=== PATIENT | male | born 1955 | race Caucasian/White ===

== ENCOUNTER 2019-03-27 11:30 | Inpatient (IN) | payer MEDICARE, MEDICAID ==
[~2019-03-27] VITALS: Ht 165.1 cm; Wt 76.7 kg
--- NOTE | ~2019-03-27 | PROC ---
[facility] [address] [place] [address] PROCEDURE REPORT Name: LETITIA STOKES Room: [address] ADM IN M.R.#: [id number] Admission: 03/27/19 Attend Phys: Zeke David, Discharge: Date of : 59 Report #: [id number] THIS REPORT FOR: //name// cc: Millicent Cruz Ann FNPC ~ THIS REPORT FOR: //name// For GI report, please see the Prov[facility] report in [facility] [employer] content. By: [id number] Records Staff AYLA /RICCO
[2019-03-27 11:33] VITALS: BP 100/61
[2019-03-27] MEDS ORDERED: ASA81BEC PO (11:41)
[2019-03-27] MEDS ORDERED: COUMADIN 3 MG TA3 MG PO (11:41)
[2019-03-27] MEDS ORDERED: VOLTAREN GEL 1100 G1 TOP (11:41)
[2019-03-27] MEDS ORDERED: ZESTRIL20 MG PO (11:41)
[2019-03-27 12:06] LABS: HEMATOCRIT 33.7 % (42.0-52.0); HEMOGLOBIN 11.5 gm/dL (14.0-18.0); MCH 28.9 pg (26.0-34.0); MCHC 34.1 g/dL (28.0-37.0); MCV 84.7 fL (80.0-100.0); MPV 7.8 fl. (7.2-11.1); NUCLEATED RBCS 0 /100WBC; PLATELET COUNT* 90 thou/uL (150-400); RBC 3.98 mil/uL (4.50-6.00); RDW-CV 13.8 % (10.5-14.5); WBC 15.6 thou/uL (4.0-11.0)
[2019-03-27 12:10] LABS: INFLUENZA A ANTIGEN Negative (Negative); INFLUENZA B ANTIGEN Negative (Negative)
[2019-03-27 12:15] LABS: APTT 46.8 Seconds (25.0-31.3); INR 1.5; PROTIME 14.7 Seconds (9.20-11.50)
[2019-03-27 12:18] LABS: CALCIUM 8.4 mg/dL (8.5-10.1); CREATININE 2.9 mg/dL (0.6-1.3); POTASSIUM 3.3 mmol/L (3.5-5.1)
[2019-03-27 12:37] LABS: ALBUMIN 2.8 g/dL (3.4-5.0); TOTAL BILIRUBIN 0.8 mg/dL (<0.1-1.0); TOTAL PROTEIN 6.2 g/dL (6.4-8.2)
[2019-03-27 12:51] LABS: ABSOLUTE LYMPHOCYTES 0.5 thou/uL (0.8-5.3); ABSOLUTE MONOCYTES 0.3 thou/uL (0.0-1.2); ABSOLUTE NEUTROPHILS 14.8 thou/uL (1.6-8.1); PLATELET ESTIMATE ADEQUATE
--- NOTE | 2019-03-27 16:55 | 2DMMODE ---
[place] [address] 2 D/M-MODE ECHOCARDIOGRAM Name: LETITIA STOKES Room: [address] IN .[place].#: [id number] Admission: 03/27/19 Attend Phys: Zeke Rahman Discharge: Date of : 59 Date of Service: 03/27/19 1654 Report #: [id number] THIS REPORT FOR: cc: Millicent Cruz Ann FNPC Blick, David R. MD [facility] ~ APPROVED REPORT Study performed: 03/27/2019 16:09:43 EXAM: Comprehensive 2D, Doppler, and color-flow Echocardiogram Patient Location: In-Patient Room #: er Status: routine BSA: 1.77 HR: 77 bpm BP: 100/61 mmHg Rhythm: NSR Other Information Study Quality: Good Indications Chest Pain 2D Dimensions IVSd: 12.15 (7-11mm) LVOT Diam: 21.74 (18-24mm) LVDd: 45.85 mm PWd: 10.09 (7-11mm) Ascending Ao: 37.87 (22-36mm) LVDs: 33.90 (25-40mm) Aortic Root: 29.09 mm Volumes Left Atrial Volume (Systole) LA ESV Index: 32.00 mL/m2 Aortic Valve AoV Peak Gregorio.: 2.59 m/s AO Peak Gr.: 26.73 mmHg LVOT Max P.11 mmHg AO Mean Gr.: 15.64 mmHg LVOT Mean P.12 mmHg LVOT Max V: 0.73 m/s AO V2 VTI: 49.90 cm LVOT Mean V: 0.50 m/s DELROY (VTI): 1.22 cm2 LVOT V1 VTI: 16.42 [place] [address] 2 D/M-MODE ECHOCARDIOGRAM Name: LETITIA STOKES Room: [address] IN M.R.#: [id number] Admission: 03/27/19 Attend Phys: Zeke Rahman Discharge: Date of : 59 Date of Service: 03/27/19 1654 Report #: [id number] Mitral Valve E/A Ratio: 0.88 MV Decel. Time: 198.00 ms MV E Max Gregorio.: 1.20 m/s MV PHT: 57.42 ms MVA (PHT): 3.83 cm2 TDI E/Lateral E': 17.14 E/Medial E': 24.00 Medial E' Gregorio.: 0.05 m/s Lateral E' Gregorio.: 0.07 m/s Pulmonary Valve PV Peak Gregorio.: 0.63 m/s PV Peak Gr.: 1.57 mmHg Tricuspid Valve RAP Estimate: 5.00 mmHg TR Peak Gr.: 29.45 mmHg RVSP: 34.00 mmHg PA Pressure: 34.00 mmHg Left Ventricle The left ventricle is normal size. hypokinesis noted of the inferior wall Mild concentric left ventricular hypertrophy. Left ventricular systolic function is normal. The left ventricular ejection fraction is within the normal range. LVEF is 40-45%. Grade I - abnormal relaxation pattern. Right Ventricle The right ventricle is normal size. The right ventricular systolic function is normal. Atria Left atrium is mildly dilated. The right atrium size is normal. Aortic Valve Moderate aortic valve sclerosis. No aortic regurgitation is present. Mild aortic stenosis. Mitral Valve There is mitral annular calcification. Mild mitral regurgitation. Mild mitral stenosis. Tricuspid Valve The tricuspid valve is normal in structure. Mild tricuspid regurgitation. estimated pa pressure 40 [place] [address] 2 D/M-MODE ECHOCARDIOGRAM Name: LETITIA STOKES Room: [address] IN [facility]#: [id number] Admission: 03/27/19 Attend Phys: Zeke Rahman Discharge: Date of : 59 Date of Service: 03/27/19 1654 Report #: [id number] Pulmonic Valve The pulmonary valve is normal in structure. There is no pulmonic valvular regurgitation. Great Vessels The aortic root is normal in size. IVC is normal in size and collapses >50% with inspiration. Pericardium There is no pericardial effusion. <Conclusion> hypokinesis noted of the inferior wall Mild concentric left ventricular hypertrophy. LVEF is 40-45%. Left atrium is mildly dilated. Mild aortic stenosis. Mild mitral regurgitation. Mild tricuspid regurgitation. estimated pa pressure 40 mm Hg <ELECTRONICALLY SIGNED> By: Brian Burns MD, [facility] 03/27/19 1654 1654 1654 Brian Burns MD, FACC /INF
[2019-03-27 17:12] VITALS: BP 89/57
[2019-03-27 17:45] LABS: URINE BLOOD 3+ (Negative); URINE CLARITY CLOUDY; URINE GLUCOSE-RANDOM TRACE (Negative); URINE KETONES NEGATIVE (Negative); URINE LEUKOCYTES-REFLEX TRACE (Negative); URINE PROTEIN 3+ (Negative); URINE SPECIFIC GRAVITY 1.025 (1.005-1.030)
[2019-03-27 17:52] LABS: ICTOTEST (BILI CONFIRMATORY) Negative (Negative); URINE BILIRUBIN 1+ (Negative); URINE COLOR BROWN; URINE NITRITE-REFLEX POSITIVE (Negative)
[2019-03-27 17:55] LABS: SQUAMOUS 4-10 Moderate /LPF (0-3); URINE RBC >20 Many /HPF (0-2); URINE WBC-REFLEX 0-5 Rare /HPF (0-5)
[2019-03-27 17:56] LABS: CASTS None Seen /LPF (None Seen); CRYSTALS None Seen /LPF (None Seen); MUCUS 0-3 Light strn/LPF (None Seen)
[2019-03-27 18:33] VITALS: BP 89/57
--- NOTE | 2019-03-27 19:52 | NUR ---
RECEIVED PT FROM ER AT 1830. GET SITUATED TO ROOM. TELE IN PLACED ORDER. VSS. AOX TO SELF, BEDREST O2 SAT 90'S RA. PT HAS GI. NEPHROLOGY CONSULT. PT FOR CTA CHEST, CT ABDOMEN. TO COLLECT U/A, STOOL. GIVE REPORT TO NIGHT NURSE. HOURLY ROUNDING, BED ALARM, CALL LIGHT WITHIN REACH,
[2019-03-28 01:03] VITALS: BP 98/62
[2019-03-28 03:55] VITALS: BP 98/57
[2019-03-28 05:16] LABS: HEMATOCRIT 30.4 % (42.0-52.0); HEMOGLOBIN 10.5 gm/dL (14.0-18.0); MCH 29.5 pg (26.0-34.0); MCHC 34.4 g/dL (28.0-37.0); MCV 85.8 fL (80.0-100.0); MPV 8.6 fl. (7.2-11.1); RBC 3.55 mil/uL (4.50-6.00); RDW-CV 14.3 % (10.5-14.5); WBC 10.1 thou/uL (4.0-11.0)
[2019-03-28 05:35] LABS: ALBUMIN 2.5 g/dL (3.4-5.0); CALCIUM 7.8 mg/dL (8.5-10.1); CREATININE 2.2 mg/dL (0.6-1.3); MAGNESIUM 1.2 mg/dL (1.8-2.4); POTASSIUM 4.2 mmol/L (3.5-5.1); TOTAL BILIRUBIN 0.5 mg/dL (<0.1-1.0); TOTAL PROTEIN 5.8 g/dL (6.4-8.2); TROPONIN-I LEVEL 0.08 ng/mL (<0.06)
--- NOTE | 2019-03-28 06:28 | NUR ---
PT IS CONFUSED AND IMPULSIVE AT TIMES. PT STATES THAT HE IS TIRED OF BEING SICK AND BECOMES EASILY FRUSTERATED. DID BECOME TEARFUL STATING THAT HIS DOG A WEEK AGO AND IT HAS BEEN VERY HARD ON HIM. NOTED FLIGHT OF THOUGHTS DURING CONVERSATION. PT IS CURRENTLY AWAKE IN BED WITH BED ALARM ON AND CALL LIGHT WITHIN REACH.
[2019-03-28 11:00] VITALS: BP 106/60
--- NOTE | 2019-03-28 13:19 | CON ---
[address] [address] CONSULTATION Name: LETITIA STOKES Room: [address] IN M.R.#: [id number] Admission: 03/27/19 Attend Phys: Zeke David, Discharge: Date of : 59 Report #: [id number] THIS REPORT FOR: //name// cc: Millicent Cruz Ann FNPC ~ THIS REPORT FOR: //name// CC: Millicent David DATE OF SERVICE: 03/27/2019 CARDIOLOGY CONSULTATION HISTORY OF PRESENT ILLNESS: The patient a 63-year-old single white male, who was brought to the Emergency Room today by ambulance after he complained of hurting all over. Unfortunately, there are no old records here at [facility]. He previously was cared for at [facility]. He has had bilateral lower extremity revascularization and stenting. He currently lives by himself here in [place]. He complained of fever, chills and weakness. He does note some episodes of chest pain. He does note some shortness of breath. MEDICATIONS: His only medication includes aspirin. Apparently, he had been on lisinopril and warfarin in the past. ALLERGIES: He has no known drug allergies. FAMILY HISTORY: Positive for heart disease. SOCIAL HISTORY: He is single. Smokes a pack of cigarettes a day. Uses alcohol occasionally. He is not working at this time. REVIEW OF SYSTEMS: He has had no history of stroke, asthma, liver disease, kidney disease or cancer. PHYSICAL EXAMINATION: GENERAL: Revealed an elderly, disheveled white male, smelling of urine. VITAL SIGNS: He had a blood pressure of 100/60, pulse is 80, temperature is 100. HEENT: He was anicteric. Conjunctivae are pink. Mucous membranes appear dry. NECK: Neck veins are nondistended. CHEST: Clear to auscultation. CARDIOVASCULAR: Regular rate and rhythm. ABDOMEN: Soft. EXTREMITIES: Had no edema. Dorsalis pedis pulse cannot be evaluated. SKIN: [place] [address] CONSULTATION Name: LETITIA STOKES Room: [address] IN [facility]#: [id number] Admission: 03/27/19 Attend Phys: Zeke David, Discharge: Date of : 59 Report #: [id number] NEUROLOGIC: Nonfocal. DIAGNOSTIC DATA: ECG shows a sinus rhythm, nonspecific ST-segment changes. His workup in the Emergency Room, he had a portable chest x-ray that showed atelectasis, otherwise unremarkable. LABORATORY WORK: Sodium 133, BUN 35, creatinine 2.9, glucose 135, albumin 2.8. Lactic acid 2.2. His troponin 0.15. BNP 6159. White blood cell count 15.6, hemoglobin 11.5. IMPRESSION AND RECOMMENDATIONS: 1. Possible sepsis. Lactic acidosis noted. The patient states he hurts all over. 2. Borderline troponin. Recommend no further cardiac evaluation at this time. 3. Peripheral arterial disease with previous stenting. 4. Hypertension. The patient is on RIOS inhibitor. 5. Use of warfarin in the past. Reason unclear. I would obtain records from [facility]. <ELECTRONICALLY SIGNED> By: Brian Burns MD, FACC 03/28/19 1319 1613 [id number] Burns MD, FACC /nt
[2019-03-28 13:56] LABS: URINE BILIRUBIN NEGATIVE (Negative); URINE BLOOD 2+ (Negative); URINE CLARITY CLEAR; URINE COLOR YELLOW; URINE GLUCOSE-RANDOM 1+ (Negative); URINE KETONES NEGATIVE (Negative); URINE LEUKOCYTES-REFLEX NEGATIVE (Negative); URINE NITRITE-REFLEX NEGATIVE (Negative); URINE PROTEIN 1+ (Negative); URINE UROBILINOGEN 0.2 E.U./dl (0.2-1.0)
[2019-03-28 14:07] LABS: SQUAMOUS 0-3 Few /LPF (0-3)
[2019-03-28 14:08] LABS: URINE RBC 3-10 Few /HPF (0-2); URINE WBC-REFLEX 0-5 Rare /HPF (0-5)
[2019-03-28 14:09] LABS: BACTERIA-REFLEX None Seen /HPF (None Seen); MUCUS None Seen strn/LPF (None Seen)
[2019-03-28 14:10] LABS: CRYSTALS None Seen /LPF (None Seen); FINE GRANULAR CASTS 0-3 Few /LPF (None Seen); HYALINE CASTS 4-10 Moderate /LPF (None Seen)
[2019-03-28 16:47] VITALS: BP 93/59
--- NOTE | 2019-03-28 18:42 | NUR ---
PT HAS C/O PAIN TO BACK AND ABD. PT GIVEN LIDOCAINE PATCH AND IV DILAUDID.ZOFRAN GIVEN FOR NAUSEA. PT TO BEGIN BOWEL PREP FOR COLONOSCOPY THIS EVENING. VSS ON RA. PT IS BEDREST. CALL LIGHT IN REACH.FALL PRCAUTIONS IN PLACE
[2019-03-28 20:00] VITALS: BP 113/63
[2019-03-28 20:02] LABS: CALCIUM 7.6 mg/dL (8.5-10.1); POTASSIUM 4.5 mmol/L (3.5-5.1)
[2019-03-29] VITALS: BP 118/68
[2019-03-29 03:59] VITALS: BP 106/69
--- NOTE | 2019-03-29 04:42 | NUR ---
ASSUMED CARE OF PT AFTER REPORT AT 1930. PT A&OX4. VSS. PHYSICAL ASSESSMENT COMPLETED AND CHARTED. PT ON RA. PT TRACING SR/ST ON TELE. PT COMPLAINED OF BACK & FEET PAIN-MEDS GIVEN PER MAR. STARTED BOWEL PREP-ENCOURAGED PT TO DRINK GOLYTELY BUT ONLY TOOK 1100 MLS. INSTRUCTED ON NPO POST MIDNIGHT FOR EGD & COLONOSCOPY TODAY. FALL PRECAUTIONS IN PLACE. CALL LIGHT WITHIN REACH.
[2019-03-29 04:46] LABS: HEMATOCRIT 27.9 % (42.0-52.0); HEMOGLOBIN 9.9 gm/dL (14.0-18.0); MCH 29.4 pg (26.0-34.0); MCHC 35.3 g/dL (28.0-37.0); MCV 83.4 fL (80.0-100.0); MPV 10.3 fl. (7.2-11.1); RBC 3.35 mil/uL (4.50-6.00); RDW-CV 13.9 % (10.5-14.5); WBC 8.5 thou/uL (4.0-11.0)
[2019-03-29 05:01] LABS: ALBUMIN 2.2 g/dL (3.4-5.0); CALCIUM 6.9 mg/dL (8.5-10.1); CREATININE 1.8 mg/dL (0.6-1.3); POTASSIUM 3.8 mmol/L (3.5-5.1); TOTAL BILIRUBIN 0.6 mg/dL (<0.1-1.0); TOTAL PROTEIN 5.7 g/dL (6.4-8.2)
[2019-03-29 07:30] VITALS: BP 120/73
--- NOTE | 2019-03-29 10:12 | CON ---
[address] [address] CONSULTATION Name: LETITIA STOKES Room: [address] IN M.R.#: [id number] Admission: 03/27/19 Attend Phys: Zeke David, Discharge: Date of : 59 Report #: [id number] THIS REPORT FOR: //name// cc: Millicent Cruz Ann FNPC ~ THIS REPORT FOR: //name// CC: Millicent David DATE OF SERVICE: 03/28/2019 REQUESTING PHYSICIAN: Zeke David MD REASON FOR CONSULTATION: Acute kidney injury. HISTORY OF PRESENT ILLNESS: The patient is a 63-year-old white male with medical history significant for hypertension, chronic pain syndrome, anemia, tobaccoism, coronary artery disease, peripheral artery disease, presents to the hospital on 03/27/2019 with complaints of nausea, diarrhea, abdominal discomfort, fever and chills. The patient had several episodes of bloody diarrhea. His creatinine on admission was 2.9, today it is 2.2. I do not have baseline of his creatinine. SOCIAL HISTORY: Positive for tobaccoism. FAMILY HISTORY: Negative for renal disease. REVIEW OF SYSTEMS: Positive for symptoms as I mentioned earlier, otherwise all systems reviewed and negative. PHYSICAL EXAMINATION: GENERAL: Awake, alert, oriented. VITAL SIGNS: Blood pressure 98/57, heart rate 81, afebrile. HEENT: Pupils are round. NECK: Supple. LUNGS: Decreased air movement. CARDIOVASCULAR: Regular rate. ABDOMEN: Soft. Mildly tender. LOWER EXTREMITIES: No edema. LABORATORY DATA: His serum sodium 136, potassium 4.2, chloride 103, carbon dioxide 21, BUN 41, creatinine 2.2. His renal ultrasound revealed normal renal cortical thickness, no evidence of obstructions, kidney sizes are normal. His abdominal ultrasound was unremarkable. He also had abdominal CT, which revealed severe pancolonic abnormal bowel wall thickening consistent with [place] [address] CONSULTATION Name: LETITIA STOKES Room: [address] IN [facility].#: [id number] Admission: 03/27/19 Attend Phys: Zeke David, Discharge: Date of : 59 Report #: [id number] ASSESSMENT: 1. Acute kidney injury due to septic process likely due to enterocolitis. 2. Enterocolitis. 3. Tobaccoism. 4. Coronary artery disease. PLAN: 1. Continue with IV fluids. 2. Continue with antibiotics. 3. His renal functions are improving. 4. We will check his postvoid residual and place Reddy if postvoid residual is high. Discussed the case with the patient's nurse. <ELECTRONICALLY SIGNED> By: George Hinkle MD 03/29/19 1012 1058 [id number] Hinkle MD /LORETO
[2019-03-29 11:15] VITALS: BP 109/64
[2019-03-29 15:02] LABS: % SATURATION 3 % (20-39); IRON 7 ug/dL (50-175)
[2019-03-29 16:02] VITALS: BP 137/71
[2019-03-29 20:00] VITALS: BP 108/69
[2019-03-30 00:55] VITALS: BP 130/56
[2019-03-30 04:18] VITALS: BP 105/56
--- NOTE | 2019-03-30 04:49 | NUR ---
ASSUMED CARE OF PT AFTER REPORT AT 1930. PT A&OX3-4. CONFUSED & FORGETFUL AT TIMES. VSS. PHYSICAL ASSESSMENT COMPLETED AND CHARTED. PT ON RA. PT TRACING SR ON TELE. PT UP WITH 1 ASSIST TO BSC. PT COMPLAINED OF BACK AND FEET PAIN-MEDS GIVEN PER APR. INSTRUCTED ON NPO POST MIDNIGHT FOR EGD & COLONOSCOPY TODAY. COMMUNICATES UNDERSTANDING BUT NEED REINFORCEMENT. PT ABLE TO SLEEP WELL ON BED. FALL PRECAUTIONS IN PLACE. CALL LIGHT WITHIN REACH.
[2019-03-30 06:12] LABS: ALBUMIN 2.5 g/dL (3.4-5.0); CALCIUM 7.4 mg/dL (8.5-10.1); CREATININE 1.6 mg/dL (0.6-1.3); POTASSIUM 3.7 mmol/L (3.5-5.1); TOTAL BILIRUBIN 0.5 mg/dL (<0.1-1.0); TOTAL PROTEIN 6.2 g/dL (6.4-8.2)
[2019-03-30 06:36] LABS: MAGNESIUM 2.3 mg/dL (1.8-2.4)
[2019-03-30 07:23] LABS: HEMATOCRIT 26.3 % (42.0-52.0); HEMOGLOBIN 9.1 gm/dL (14.0-18.0); MCHC 34.7 g/dL (28.0-37.0); MCV 83.6 fL (80.0-100.0); MPV 9.2 fl. (7.2-11.1); RBC 3.15 mil/uL (4.50-6.00); RDW-CV 14.6 % (10.5-14.5); WBC 8.8 thou/uL (4.0-11.0)
[2019-03-30 08:00] VITALS: BP 103/63
[2019-03-30 11:01] VITALS: BP 119/66
--- NOTE | 2019-03-30 12:37 | NUR ---
Pt out of room, CM to f/u later
[2019-03-30 15:00] VITALS: BP 127/73
--- NOTE | 2019-03-30 16:30 | CON ---
[address] [address] CONSULTATION Name: LETITIA STOKES Room: [address] IN M.R.#: [id number] Admission: 03/27/19 Attend Phys: Zeke David, Discharge: Date of : 59 Report #: [id number] THIS REPORT FOR: //name// cc: Millicent Cruz Ann FNPC ~ THIS REPORT FOR: //name// CC: Millicent David DATE OF SERVICE: 03/29/2019 INFECTIOUS DISEASE CONSULTATION REASON FOR CONSULTATION: Evaluate bacteremia. HISTORY OF PRESENT ILLNESS: A 63-year-old with underlying coronary artery disease, peripheral vascular disease, aortic stenosis, who has had fever, chills, bloody diarrhea. Onset of his illness was about a week before his admission. He has had low back pain. Mild abdominal pain. Denied any chest pain, cough, or sputum production. He has had no skin lesions. He has underlying history of peripheral vascular disease. He has had an aortic stent graft. He has had bilateral endarterectomies in the femoral regions. He has also had a carotid endarterectomy. He reports no specific travel. He lives alone. He has had no vomiting. Denies any previous history of enteritis. REVIEW OF SYSTEMS: A 10-point review of system was negative other than what has been described above. As far his back pain goes, it has been moderate in severity with no radicular features. PAST MEDICAL HISTORY: Hypertension, coronary artery disease, peripheral vascular disease, hyperlipidemia, hypothyroidism, peripheral stents, and aortic stenosis. FAMILY HISTORY: Noncontributory. SOCIAL HISTORY: Smoker of cigarettes. Previously heavy drinker. ALLERGIES: None known. MEDICATIONS: As noted on his MAR, now on Zosyn and metronidazole. PHYSICAL EXAMINATION: VITAL SIGNS: He was afebrile and hemodynamically stable. GENERAL: He was poorly kempt. SKIN: Without rash or decubitus. [place] [address] CONSULTATION Name: LETITIA STOKES Room: [address] IN [facility].#: [id number] Admission: 03/27/19 Attend Phys: Zeke David, Discharge: Date of : 59 Report #: [id number] HEENT: Eyes, without scleral icterus or conjunctivitis. No evidence of peripheral emboli. Mouth without mucositis. Dentition in very poor repair with multiple fractured teeth and dental caries. NECK: Supple. LUNGS: Clear. HEART: Regular without appreciable murmur. ABDOMEN: Soft and nontender. EXTREMITIES: Without clubbing, cyanosis, or edema. I did not appreciate abdominal bruit. Abdomen was without hepatosplenomegaly or mass. No CVA tenderness. No back percussion tenderness or CVA tenderness. NEUROLOGIC: Cranial nerves intact. Strength in the upper and lower extremities along with sensation to touch symmetric and within normal limits. Mood was normal. LABORATORY STUDIES: Reviewed. Microbiology reviewed. CT scan of the abdomen and pelvis, chest x-ray and ultrasound of the abdomen reviewed. 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 IMPRESSION: 1. Gram-positive cocci bacteremia, high grade, concerning for endovascular infection. Colitis with bloody stool, concerning for underlying ischemia. 2. Aortic stenosis with history of vascular disease, carotid, abdominal, and femoral disease. 3. Back pain, still indeterminate in etiology. 4. Anemia and thrombocytopenia. 5. Acute kidney injury. RECOMMENDATIONS: 1. We will add vancomycin to the program and change Zosyn to Unasyn. Repeat his blood cultures today. 2. We will await endoscopy and look for evidence of colitis or aortic fistula. With a stent graft, this would be unusual, much less common than typical surgical aortic aneurysm repair. 3. Obtain transesophageal echocardiogram. 4. Follow back pain. May need further imaging. <ELECTRONICALLY SIGNED> By: Chinedu Gonzalez MD 03/30/19 1630 1947 Dshine Gonzalez MD /nt
[2019-03-30 16:45] VITALS: BP 119/74
--- NOTE | 2019-03-30 16:54 | NUR ---
0850 SS enema given prior to colonscopy/EGD. Pt assisted to BSC and tolerated well. 1015 patient taken to GI lab. IV patent and site without redness or edema.
--- NOTE | 2019-03-30 16:56 | NUR ---
1500 patient returned to room in good condition, report rec'd from Jacquie. Pt had 6 polyps removed and sent for biopsy. Pt presents with confusion and demanding to go home. Speaking to his sister...Rachael on the phone and handed the phone to this nurse. Rachael states that she is currently in [place] having a dental procedure performed and is unable to be here for her brother although she is the [facility]. Patient became angry with her because she would not come and get him, trying other friends and family members who also, stated they would not come and take him home. This nurse spoke with patient at great length about how sick he is, he just had anesthesia and he should really stay the night and look at things again tomorrow. Pt agreed and a late lunch tray with extra soda was provided with pt expressing thanks.
--- NOTE | 2019-03-30 17:00 | NUR ---
1352 Silvia Butler from Lab called and informed Júnior Ordonez of 2nd blood culture being positive for gram + cocci. This nurse sent message to Dr. Aragon, and LM with Isamar at Dr. Bourne's office r/t results. Rec'd callback from Dr. Aragon to make sure Dr. Bourne is aware and informed him that his office has been notified. No return call from Dr. Bourne rec'd.
--- NOTE | 2019-03-30 19:49 | NUR ---
I AGREE WITH IRINA SHAW CHARTING/ASSESSMENT.
[2019-03-31 00:44] VITALS: BP 133/62
[2019-03-31 04:47] VITALS: BP 105/60
[2019-03-31 06:09] LABS: HEMATOCRIT 29.2 % (42.0-52.0); HEMOGLOBIN 10.1 gm/dL (14.0-18.0); MCH 29.3 pg (26.0-34.0); MCHC 34.5 g/dL (28.0-37.0); MPV 9.9 fl. (7.2-11.1); RBC 3.44 mil/uL (4.50-6.00); RDW-CV 14.7 % (10.5-14.5)
[2019-03-31 06:20] LABS: CALCIUM 7.6 mg/dL (8.5-10.1); CREATININE 1.4 mg/dL (0.6-1.3); POTASSIUM 3.4 mmol/L (3.5-5.1)
[2019-03-31 08:00] VITALS: BP 120/68
--- NOTE | 2019-03-31 11:03 | NUR ---
Pt is A&O. Resides at home alone. Independent. Pt has a walker, but states he wants a newer one. CM contacted Tamara at [facility], Pt qualifies for a new walker, order faxed, walker to be dispensed at dc. Order is on the front of the chart. No home o2. No hx of HH or SNF. Pt wants HH at dc, CM to fax intial HH referral to [facility], will fax orders at dc, anticipate dc in a few days. Following.
[2019-03-31 11:09] VITALS: BP 120/68
--- NOTE | 2019-03-31 12:24 | CON ---
[address] [address] CONSULTATION Name: KIKELETITIA Room: [address] IN M.R.#: [id number] Admission: 03/27/19 Attend Phys: Zeke David, Discharge: Date of : 59 Report #: [id number] THIS REPORT FOR: //name// cc: Millicent Cruz Ann FNPC ~ THIS REPORT FOR: //name// CC: Millicent David DATE OF SERVICE: 03/28/2019 HISTORY OF PRESENT ILLNESS: This is a pleasant 63-year-old gentleman with past medical history significant for coronary artery disease, peripheral vascular disease, hypertension, hyperlipidemia, osteoarthritis, who is presenting for evaluation of fever, chills, and diarrhea. The patient complained of generalized abdominal pain with nausea. He denies any vomiting. He initially reported to me that he had some diarrhea with hematochezia, but then he was not sure whether it was hematochezia or hematuria. The patient reports since his hospitalization, his abdominal pain has subsided and he is unable to give me any details about it. Does report associated fever and subjective sensation of chills. The patient denies similar episodes in the past. The patient has never had an EGD or colonoscopy in the past. PAST MEDICAL HISTORY: Hypertension, coronary artery disease, peripheral vascular disease, hyperlipidemia, hypothyroidism. PAST SURGICAL HISTORY: The patient had multiple stents placed in his lower extremities and he has a large midline scar in his abdomen, but he is unable to tell me what is the reason for that. SOCIAL HISTORY: The patient reports he quit drinking last year, but prior to that abused alcohol heavily. He reports that prior to last year, he was a 2-pack per day smoker, but now smokes about 6 cigarettes per day. Denies any recreational drug use. FAMILY HISTORY: No known history of colon cancer or Cunningham related neoplasia. REVIEW OF SYSTEMS: Negative except for what was mentioned in the HPI. PHYSICAL EXAMINATION: VITAL SIGNS: Temperature 36.8, pulse rate 84, blood pressure 93/59, pulse ox 95%. LABORATORY DATA: Hemoglobin 10.5, hematocrit 30.4, platelet count 53, WBC count 10.1. Sodium 136, potassium 4.2, chloride 103, bicarbonate 21, BUN 41, [place] [address] CONSULTATION Name: KIKELETITIA Room: [address] IN [facility].#: [id number] Admission: 03/27/19 Attend Phys: Zeke David, Discharge: Date of : 59 Report #: [id number] creatinine 2.2, total bilirubin 0.7, AST 77, ALT 35, alkaline phosphatase 51. INR 1.5. IMAGING: Abdomen CT, this demonstrates severe pancolonic thickening consistent with enterocolitis, nonspecific gallbladder wall thickening with pericholecystic fluid, edema. ASSESSMENT: Pleasant 63-year-old gentleman with history of alcohol abuse, lifetime history of smoking, peripheral vascular disease, coronary artery disease, presents for evaluation of abdominal pain and diarrhea. The patient has not had a bowel movement since his hospitalization; therefore, samples were unable to be sent for C. diff. He has imaging evidence of pancolitis. PLAN: I would recommend prepping him tomorrow for a colonoscopy. Thrombocytopenia, I suspect because of his heavy alcohol abuse, the patient may have a history of cirrhosis for which I would recommend getting an EGD at the same time. If the EGD has varices, this would probably be diagnostic of cirrhosis; however, if he does not have any varices, I would recommend getting a transjugular liver biopsy as he is on chronic anticoagulation. <ELECTRONICALLY SIGNED> By: Casey Zhao MD 03/31/19 1224 1721 [id number] Zhao MD /nt
[2019-03-31 13:06] VITALS: BP 140/81
[2019-03-31 17:30] VITALS: BP 187/96
--- NOTE | 2019-03-31 18:57 | NUR ---
ASSUMED PT CARE AT 0800, PT AOX2, UP WITH ASSIST O2 SAT 90'S RA. STATUS CHANGED TO MED SURG. PT COMPLAINS OF BACK AND ABDOMINAL PAIN. EDEMA ON BILATERAL LOWER EXT, ABDOMEN AND PENIS AREA NOTED. PT STATE HE IS NOT FEELING GOOD IN GENERAL. PT RECEIVED IRON SUCROSE. PT ON ANTIBIOTIC. MEDS GIVEN ORDERED. AROUND 1340 PT SAY HE HAVENT URINATE. BLADDER SCAN SHOWS 180. PT GETTING ANXIOUS AND WANTED HAVE CATHETER. DID ONE TIME STRAIGHT CATHETER AND REMOVED 200. PT CONTINUE TO COMPLAINS OF HAVING A LOT PAIN AND WANTED TO LEAVE. PAIN MEDS GIVEN WITHOUT RELIEF. PT TRIED TO LEAVE THE UNIT. WE CALLED THE SECURITY AND ABLE TO CONVINCED HIM TO GO BACK TO ROOM.THIS NURSE HAD A LENGHTY TALK WITH PT AND EXPLAINED WHY HE NEEDS TO STAY TO HOSPITAL. EVENTUALLY PT CALM DOWN AND AGREE. HOURLY ROUNDING, CALL LIGHT WITHIN REACH, WILL CONTINUE TO MONITOR.
--- NOTE | 2019-03-31 22:52 | NUR ---
2000 Pt refusing assessment and v/s at this time. 2029 Phlebotomy reporting that pt is refusing lab work. [address] PM medications. Dr Del Cid notified.
[2019-04-01] VITALS (9 sets, daily range): BP systolic 152–185; BP diastolic 71–99
[2019-04-01 10:21] LABS: HEMATOCRIT 28.5 % (42.0-52.0); HEMOGLOBIN 9.6 gm/dL (14.0-18.0); MCH 28.3 pg (26.0-34.0); MCHC 33.6 g/dL (28.0-37.0); MCV 84.2 fL (80.0-100.0); RBC 3.38 mil/uL (4.50-6.00); RDW-CV 14.6 % (10.5-14.5); WBC 12.3 thou/uL (4.0-11.0)
--- NOTE | 2019-04-01 10:34 | NUR ---
Patient came down from 2W for VASHTI procedure and vitals completed. Patient is febrile with temp measuring 101.6 degrees. Call placed to MD and update given. Relayed to Dr. Del Cid that patient's abdomen is tight with no bowel sounds on the right side and active bowel sounds on the left side. Patient is not comfortable and is nauseated. Attempted to do the VASHTI after 4mg Versed and 100mcg Fentanyl and patient could not tolerate the tube in his throat. Procedure aborted for today and will schedule with anesthesia tomorrow. Dr. Del Cid updated on patients status
[2019-04-01 10:37] LABS: CALCIUM 7.9 mg/dL (8.5-10.1); CREATININE 1.1 mg/dL (0.6-1.3); MAGNESIUM 1.8 mg/dL (1.8-2.4); POTASSIUM 3.6 mmol/L (3.5-5.1)
--- NOTE | 2019-04-01 13:44 | EKG ---
[place] [address] ELECTROCARDIOGRAM REPORT Name: KIKELETITIA Downs Room: [address] ADM IN M.R.#: [id number] Admission: 03/27/19 Attend Phys: Zeke Rahman Discharge: Date of : 59 Date of Service: 03/28/19 0053 Report #: [id number] THIS REPORT FOR: cc: Millicent Cruz Ann FNPC Holkins, John M. MD [facility] ~ THIS REPORT FOR: //name// [facility] Test Date: 2019-03-28 Test Time: 00:53:56 Pat Name: LETITIA STOKES Department: Room: [address] Gender: M Pastor: WILLIAM : 1955 Requested By: Zeke David Order Number: [id number] Reading MD: Moise Wing Measurements Intervals [place] Rate: 82 P: 50 OR: 143 QRS: 22 QRSD: 104 T: 98 QT: 398 QTc: 465 Interpretive Statements Sinus rhythm Borderline T abnormalities, lateral leads Baseline wander in lead(s) V1,V4 Compared to ECG 03/27/2019 12:09:25 T-wave abnormality now present ST (T wave) deviation no longer present Electronically Signed On 03-30-2019 15:56:45 [employer] by Moise Wing [email or web address] <ELECTRONICALLY SIGNED> By: Moise Wign MD, [facility] 03/30/19 1556 005 Moise Wing MD, [facility] /EPI
--- NOTE | 2019-04-01 13:55 | EKG ---
[place] [address] ELECTROCARDIOGRAM REPORT Name: LETITIA STOKES Room: [address] ADM IN M.R.#: [id number] Admission: 03/27/19 Attend Phys: Zeke Rahman Discharge: Date of : 59 Date of Service: 03/27/19 1209 Report #: [id number] THIS REPORT FOR: cc: Millicent Cruz Ann FNPC Blick,Brian Pruitt MD [facility] ~ THIS REPORT FOR: //name// [facility] ED Test Date: 2019-03-27 Test Time: 12:09:25 Pat Name: LETITIA STOKES Department: Room: [facility] Gender: M Teacher Selection Specialist: : [id number] Requested By: Ahsan Ulloa Order Number: [id number] MD: Brian Burns Measurements Intervals [place] Rate: 98 P: 32 [place]: 142 QRS: 4 QRSD: 103 T: 41 QT: 362 QTc: 463 Interpretive Statements Sinus rhythm Probable left atrial enlargement RSR' in V1 or V2, probably normal variant Minimal ST depression, lateral leads Baseline wander in lead(s) V4,V5 No previous ECG available for comparison Electronically Signed On 03-27-2019 15:18:05 CHILD PROTECTIVE INVESTIGATOR by Brian Burns [email or web address] <ELECTRONICALLY SIGNED> By: Brian Burns MD, [facility] 03/27/19 1518 1209 1209 Brian Burns MD, [facility] /EPI
--- NOTE | 2019-04-01 16:08 | NUR ---
CALLED IN [employer] SCRIPT TO CHECK COST AND SEE IF NEEDED PRIOR AUTH, HAD TO LEAVE ON VMAIL AT [facility]
[2019-04-02] VITALS: BP 128/83
--- NOTE | 2019-04-02 04:36 | NUR ---
PT. HAS REMAINED IMPULSIVE, ATTEMPTS TO CLIMB OUT OF BED FREQUENTLY THROUGHOUT SHIFT. BED ALARM HAS REMAINED ARMED, SAFETY MAINTAINED. PT. VERY FRUSTRATED THAT HE CANNOT DRINK ANYTHING THIS A.M. DUE TO VASHTI. CURSING, EXPRESSING FRUSTRATION. THIS NURSE SAT IN ROOM DUE TO IMPULSIVENESS/MAINTAIN SAFETY. NEW IV STARTED IN RIGHT WRIST. ROOM CLOSE TO NURSING STATION, BED ALARM ARMED. WILL CONTINUE TO MONITOR.
[2019-04-02 08:20] LABS: HEMATOCRIT 29.3 % (42.0-52.0); HEMOGLOBIN 9.9 gm/dL (14.0-18.0); MCH 28.5 pg (26.0-34.0); MCHC 33.7 g/dL (28.0-37.0); MCV 84.5 fL (80.0-100.0); MPV 8.2 fl. (7.2-11.1); RBC 3.47 mil/uL (4.50-6.00); RDW-CV 14.2 % (10.5-14.5); WBC 14.8 thou/uL (4.0-11.0)
[2019-04-02 08:25] LABS: CALCIUM 7.6 mg/dL (8.5-10.1); CREATININE 1.2 mg/dL (0.6-1.3); MAGNESIUM 1.6 mg/dL (1.8-2.4); POTASSIUM 3.2 mmol/L (3.5-5.1)
[2019-04-02 16:16] VITALS: BP 137/77
[2019-04-02 20:30] VITALS: BP 167/88
[2019-04-03 00:11] VITALS: BP 167/68
[2019-04-03 04:20] VITALS: BP 153/75
[2019-04-03 05:33] LABS: CALCIUM 7.9 mg/dL (8.5-10.1); CREATININE 1.2 mg/dL (0.6-1.3); MAGNESIUM 1.7 mg/dL (1.8-2.4); POTASSIUM 3.5 mmol/L (3.5-5.1)
--- NOTE | 2019-04-03 06:00 | NUR ---
PT SLEPT ON AND OFF THIS SHIFT. ASSESSMENT DOCUMENTED. MEDS GIVEN PER E-MAR. IV PATENT, ABX GIVEN. PAIN MEDS GIVEN PER E-MAR PER PT REQUEST. PT REFUSING GOWN THIS SHIFT, REFUSING TO ANSWER QUESTIONS. PT YELLING OUT AT TIMES. PT IV SITE INFILTRATED THIS MORNING. UNABLE TO GET NEW SITE AT THIS TIME, NURSING ORAL SURGERY PHYSICIAN NOTIFIED. WILL CONTINUE WITH PLAN OF CARE.
[2019-04-03 08:25] LABS: HEMATOCRIT 33.3 % (42.0-52.0); HEMOGLOBIN 11.1 gm/dL (14.0-18.0); MCHC 33.2 g/dL (28.0-37.0); MCV 84.4 fL (80.0-100.0); MPV 7.6 fl. (7.2-11.1); RBC 3.95 mil/uL (4.50-6.00); RDW-CV 14.7 % (10.5-14.5); WBC 25.3 thou/uL (4.0-11.0)
[2019-04-03 10:07] LABS: APTT 26.7 Seconds (25.0-31.3); INR 1.1; PROTIME 11.4 Seconds (9.20-11.50)
[2019-04-03 12:25] LABS: BF RBC 1306 /mm3; TOTAL CELL COUNT 455 /mm3
[2019-04-03 12:51] LABS: BF LYMPHOCYTES 36 %; BF MONOCYTES 3 %; BF POLYS 61 %; BF TISSUE 15 /100 WBC
[2019-04-03 13:07] LABS: CLARITY CLEAR; TOTAL VOLUME 55 ml
[2019-04-03 13:08] LABS: SOURCE THORACENTESIS
[2019-04-03 16:00] VITALS: BP 142/81
--- NOTE | 2019-04-03 18:33 | NUR ---
ORDER RECEIVED TO TRANSFER CARE OF PATIENTTO 3W. VITAL SIGNS STABLE AND RIGHT THORACENTESIS SITE COVERD WITH BANDAIDE. LUNG SOUNDS DIMINISHED BUT MUCH MORE CLEAR THAN PRIOR TO PROCEDURE. HOURLY ROUNDING COMPLETED FOR PATIENT SAFETY.
--- NOTE | 2019-04-03 18:42 | NUR ---
PT A&OX3 VSS. PT TRANSFERRED FROM [facility] THIS AFTERNOON APPROX 1700. 22G IN LFA PATENT, NO REDNESS/SWELLING AT SITE. PT HAD THORACENTESIS TO R CHEST PRIOR TO ARRIVING ON UNIT. PT REMAINS CONTINENT OF B/B. PT USES CALL LIGHT TO REQUEST ASSISTANCE. FALL PRECAUTIONS IN PLACE, BED ALARM ON FOR PT SAFETY. PT ATE DINNER AT BEDSIDE. PT RESTS IN BED WITH CALL LIGHT IN REACH. WILL CONTINUE TO MONITOR. PT YELLED OUT THAT HE HAD BM IN BED, BUT WAS FOUND TO BE CLEAN AND DRY. PT HAS URINAL AT BEDSIDE.
[2019-04-04] VITALS: BP 146/85
[2019-04-04 04:26] LABS: HEMATOCRIT 29.8 % (42.0-52.0); HEMOGLOBIN 10.2 gm/dL (14.0-18.0); MCH 28.9 pg (26.0-34.0); MCHC 34.3 g/dL (28.0-37.0); MCV 84.3 fL (80.0-100.0); MPV 7.6 fl. (7.2-11.1); RBC 3.53 mil/uL (4.50-6.00); RDW-CV 15.2 % (10.5-14.5); WBC 19.1 thou/uL (4.0-11.0)
[2019-04-04 04:48] LABS: CALCIUM 8.2 mg/dL (8.5-10.1); CREATININE 1.2 mg/dL (0.6-1.3); MAGNESIUM 1.9 mg/dL (1.8-2.4); POTASSIUM 3.2 mmol/L (3.5-5.1)
--- NOTE | 2019-04-04 06:36 | NUR ---
PT SLEPT OFF AND ON OVERNIGHT, LORAZEPAM GIVEN PRN FOR AGITATION, COMBATIVENESS WITH GOOD RESULT. SETTING OFF BED ALARM TRYING TO GET OOB, WEAK AND UNSTEADY OVERNIGHT. VERY SOB WITH EXERTION, AUDIBLE WHEEZING, SATS ON ROOM AIR 93%, O2 2L PLACED FOR PT COMFORT PRN. LFA SL, ABX GIVEN ORDERED. DRSG TO R BACK CDI AT SITE OF THORACENTESIS YESTERDAY. VOIDING PER URINAL, URINE DARK ORANGE DUE TO ABX. 500ML VOID THIS SHIFT, SOME HESITANCY/DIFFICULTY STARTING STREAM WITH URINATION. BED BATH GIVEN THIS MORNING, ASSISTED UP TO CHAIR PER PT REQUEST, BUT DIDNT STAY LONG SAYING THAT IT WAS UNCOMFORTABLE AND WANTING TO GO BACK TO BED. NICOTINE PATCH TO R SHOULDER REPLACED THIS MORNING. POTASSIUM PO GIVEN THIS MORNING PER PROTOCOL X1 DOSE. ABLE TO USE CALL LITE, YELLS OUT, TO MAKE NEEDS KNOWN, BED ALARM ON FOR SAFETY.
[2019-04-04 08:00] VITALS: BP 175/95
[2019-04-04 16:00] VITALS: BP 207/93
--- NOTE | 2019-04-04 18:19 | NUR ---
PT IS A/O BUT CONFUSED AT TIMES.PT HAS BEEN IRRITABLE AND UNCOOPERATIVE.PT AND FAMILY AT BEDSIDE REFUSED TO HAVE BED ALARM OR CHAIR ALARM ON THE PT.PT AND FAMILY EDUCATED ON THE HOSPITAL POLICIES AND FALL RISK.PT REQUESTED TO TRANSFER TO [facility].SLUDGE MILL OPERATOR NOTIFIED-[facility] DENIED PT TO TRANSFER AT THIS TIME.PT WOULD LIKE TO TRY AGAIN TOMORROW.HTN THROUGHOUT SHIFT-DOCTOR NOTIFIED WITH NEW ORDERS RECEIVED.PT REMAINS ON 2L O2 NC PRN.NEW IV INSERTED IN LEFT FOREARM.IV ANTIBIOTICS GIVEN.40 MG LASIX GIVEN.POTASSIUM REPLACED.PT C/O PAIN IN BACK WITH MEDICATIONS GIVEN.PT AND FAMILY INFORMED OF PLAN OF CARE BY DOCTOR AND COMMUNICATE UNDERSTANDING.HOURLY ROUNDING COMPLETED FOR PT SAFETY.CALL LIGHT AND FALL PRECAUTIONS IN PLACE THIS EVENING WHILE PT RESTING.WILL CONTINUE TO MONITOR FOR DURATION OF SHIFT.
[2019-04-04 19:33] VITALS: BP 172/96
--- NOTE | 2019-04-05 05:13 | NUR ---
PT SLEPT ON AND OFF OVERNIGHT, CO BACK PAIN, MEDICATIONS GIVEN PRN ORDERED WITH SHORT TERM RELIEF. PT AO X4, PERIODS OF APPARENT CONFUSION OR FORGETFULNESS NOTED. BECOMES AGITATED AND IMPULSIVE, IMPATIENT AND ANXIOUS EASILY. MINAYA, MOVES ABOUT IN BED INDEP. SETTING OFF BED ALARM TRYING TO GET OOB A COUPLE OF TIMES, ASSISTED WITH URINAL AND BACK TO BED. IV LFA INFILTRATED THIS MORNING, 4 ATTEMPTS TO RESTART IV WITH NO SUCCESS, PT REFUSING FURTHER ATTEMPTS AT THIS TIME "I JUST WANT TO SLEEP FOR NOW". ID HERE AND MADE AWARE OF NO IV ACCESS AT THIS TIME, STATES OK FOR PICC LINE AND/OR TRANSFER TO [facility]. NICOTINE PATCH ON PER PT REQUEST, LIDOCAINE PATCH TO BACK, PRN PO ANXIETY AND PAIN MEDS GIVEN. IV ATIVAN GIVEN ONCE-NO IV ACCESS AT THIS TIME. LAB STATES PT REFUSING LABS THIS MORNING-STATES THAT HE WILL ALLOW IT "LATER".O2 2L PRN. ABLE TO USE CALL LITE AND MAKE NEEDS KNOWN. YELLS OUT FREQUENTLY RATHER THAN USING CALL LITE THIS SHIFT.
[2019-04-05 07:47] LABS: HEMATOCRIT 29.8 % (42.0-52.0); HEMOGLOBIN 10.1 gm/dL (14.0-18.0); MCH 28.8 pg (26.0-34.0); MCHC 33.9 g/dL (28.0-37.0); MCV 84.8 fL (80.0-100.0); MPV 7.8 fl. (7.2-11.1); RBC 3.52 mil/uL (4.50-6.00); RDW-CV 15.2 % (10.5-14.5); WBC 18.1 thou/uL (4.0-11.0)
[2019-04-05 08:17] LABS: ALBUMIN 2.1 g/dL (3.4-5.0); CALCIUM 7.6 mg/dL (8.5-10.1); CREATININE 1.2 mg/dL (0.6-1.3); MAGNESIUM 1.9 mg/dL (1.8-2.4); POTASSIUM 3.2 mmol/L (3.5-5.1); TOTAL BILIRUBIN 1.9 mg/dL (<0.1-1.0)
--- NOTE | 2019-04-05 12:57 | NUR ---
ASSESSMENT COMPLETE. PT ALERT AND ORIENTED X4. PRN PAIN MEDICATION GIVEN NEEDED FOR CHRONIC BACK PAIN. SISTER AT BEDSIDE MOST OF THE DAY. JELENA WITH INFUSION WILL PLACE MIDLINE THIS AFTERNOON PER DR SARGENT. NO IV ACCESS SINCE LAST NIGHT. PT TOLERATING MEALS, DENIES N/V. CONSTIPATION REPORTED, WILL GIVE PRN MEDICATIONS. PT ENCOURAGED TO INCREASE ACTIVITY. KPAD IN PLACE FOR BACK PAIN. PT SITTING IN CHAIR MOST OF THE DAY. SEE ASSESSMENT AND VITALS FOR OTHER DETAILS. CALL LIGHT WITHIN REACH, WILL CONTINUE PLAN OF CARE.
--- NOTE | 2019-04-05 17:39 | NUR ---
JELENA WITH INFUSION PLACED NEW IV IN RIGHT FA, ABX STARTED. NO OTHER CONCERNS AT THIS TIME. WILL CONTINUE PLAN OF CARE
--- NOTE | 2019-04-05 19:19 | NUR ---
PATIENT COMPLAINED OF CONSTIPATION THROUGHOUT THE DAY, DULCOLAX AND MILK OF MAG GIVEN ,BM TONIGHT BEFORE DINNER. PATIENT IS IN BED AND HAS NO OTHER CONCERNS AT THIS TIME. CALL LIGHT WITHIN REACH. WILL CONTINUE PLAN OF CARE
[2019-04-05 19:45] VITALS: BP 168/82
--- NOTE | 2019-04-05 20:45 | NUR ---
PT AWAKE AND YELLING "IM HURTING", FOUND PT SITTING AT SIDE OF BED CURSING AND MUTTERING TO HIMSELF. AGITATED, WANTING MORE VALIUM, ENEMA, XANAX. I EXPLAINED TO PT THAT I HAD PAIN AND ANXIETY MEDS TO GIVE HIM BUT IT WAS TOO SOON FOR XANAX. PT CALLED SISTER, STATES "THEY WONT GIVE ME XANAX OR VALIUM OR ANYTHING, COME HELP ME, GET ME OUT OF HERE." I SPEAK TO SISTER ON PHONE EXPLAINING THAT I DO HAVE MEDS TO GIVE HIM AND AM IN ROOM TRYING TO DO THAT BUT HE IS AGITATED AND NOT COOPERATIVE. SISTER STATES THAT SHE WAS AFRAID HE WOULD BE "WOUND UP" TONIGHT BECAUSE HE SLEPT DURING THE DAY. SHE HAD ME HAND PHONE TO PT AND I COULD HEAR HER TELL HIM TO TAKE THE MEDS I HAD FOR HIM. HE CURSED AT HER AND HUNG UP THE PHONE. ASSISTED WITH WALKER TO BATHROOM WHERE HE SAT FOR AWHILE. AFTER COMING OUT OF BATHROOM HE AGREED TO TAKE MEDICATION. ASSISTED INTO BED FOR COMFORT, CREAM APPLIED TO BACK AND PT POSITIONED FOR COMFORT. PT CALM AND STATES HE WILL TRY TO SLEEP. BED ALARM ON, CALL LITE IN EASY REACH.
--- NOTE | 2019-04-06 05:16 | NUR ---
AFTER INITIAL EXCESSIVE AGITATION AND AGGRESSIVENESS PT HAS SLEPT FAIRLY WELL AND BEEN MORE CALM AND COOPERATIVE. RHAND IV ABX GIVEN ORDERED. PO POTASSIUM GIVEN. KPAD TO BACK PRN, BENGAY ALSO. UP WITH WALKER AND SBA TO BR TO VOID OVERNIGHT, NO FURTHER BM. LIDOCAINE PATCH TO BACK, NICOTINE PATCH ON PER PT REQUEST. O2 2L PRN FOR PT COMFORT. VALIUM PRN, LORAZEPAM PRN. ABLE TO USE CALL LITE AND MAKE NEEDS KNOWN, IMPULSIVE AND SETS OFF BED ALARM AT TIMES.
[2019-04-06 07:40] VITALS: BP 166/87
--- NOTE | 2019-04-06 11:30 | NUR ---
MET WITH PT, SISTER/KATIE AND SISTER/NEO ON SPEAKER PHONE. DISCUSSED POC, DC PLANNING WITH OPTIONS AND ANSWERED QUESTIONS ABOUT THE QUESTION OF TRANSFERRING TO [facility]. IT AGAIN CAME UP RE: SISTER/NEO POSSIBLY WANTING PT TRANSFERRED TO [facility] TO SEE SURGEON WHO PERFORMED LEG SURGERY. EXPLAINED THAT THE TRACTOR SWEEPER DRIVER/AMANDA THAT SAW PT TODAY AND RECOMMENDED XARELTO FOR 'CLOT' IS WITH DR BUTLER WHO WAS SURGEON. OFFERED TO HAVE DTR CALL PT'S CARDIOLGIST AT [facility] TO DISCUSS CONCERNS AND THAT CM COULD FAX CLINICAL INFO THERE IF THEY DESIRED. PT/SISTERS SEEMED SATISIFED AFTER DISCUSSION AND TO STAY IN THE HOSPITAL HERE. DISCUSSED DC PLAN WITH IV ANTIBX NEEDS, NONE OF THEM FELT PT COULD PERFORM IVS AT HOME AND PREFER HE GO TO SNF. PT AGREEABLE. GAVE LIST TO KATIE TO DISCUSS AND CHOSE SOME. THEY WOULD LIKE PT TO BE CLOSE TO [place] IF POSSIBLE D/T FAMILY IN THAT AREA. KATIE [place] FROM [place] OF [place] [facility], NOT SURE HOW LONG SHE WILL BE HERE. EXPLAINED THAT PT MAY NOT BE ABLE TO STAY IN SNF FOR THE WHOLE TX OF INFECTION/ANTIBX PLAN WHICH IS 4-6WEEKS BUT THAT WE COULD START WITH SNF AND THEY COULD TALK ABOUT PLANS LATER IF NEEDED TO TRANSITION HOME. STARTED WITH 4 FACILITIES [place], AWAITING CALLS BACK. PT TO GET PICC TODAY. ANTICIPATE DC EARLY TOMORROW. DID CHECK COPAY COST ON ANTIBX, IF AT HOME, WOULD BE AT LEAST $117/WEEK FOR PT, DOUBT HE COULD AFFORD THAT. WILL FOLLOW
--- NOTE | 2019-04-06 12:07 | NUR ---
RIGHT BASILIC VESSEL ACCESSED FOR SINGLE LUMEN PICC. LINE PRE-TRIMMED TO 41 CM AND ADVANCED TO THE ZERO LEXX WITH NO RESISTANCE MET. UPPER ARM CIRCUMFERENCE ABOVE INSERTION SITE= 11 1/2". SHERLOCK MAGNET AND 3CG CONFIRMATION OF TIP TERMINATION AT THE CAVOATRIAL JUNCTION APPRECIATED. GUIDEWIRE REMOVED, LINE FLUSHED AND INSERTION SITE DRESSED. REPORT GIVEN TO JOAN PINEDA.
--- NOTE | 2019-04-06 12:58 | NUR ---
FAXED REFERRALS TO [facility] [phone]; [facility] [phone]; [facility] AND [facility] [phone]; AND [facility] [phone]. [facility] CALLED AND HAVE NO BEDS AVAILABLE. THE OTHER FACILITIES ARE REVIEWING. DCP TO FOLLOW
[2019-04-06 16:00] VITALS: BP 136/77
--- NOTE | 2019-04-06 16:00 | NUR ---
HEARD BACK FROM [facility]. THEY CAN ACCEPT PT BUT WANTED TO ENSURE PT UNDERSTOOD THEY ARE A NO SMOKING FACILITY EVEN ON THEIR GROUNDS. PT WOULD HAVE TO BE IN A SEMI PVT ROOM ALSO. CALLED TO UPDATE SISTER/ANTONY. SHE W[facility] LIKE [facility] TO RESPOND BEFORE DECIDING ON FACILITY
--- NOTE | 2019-04-06 17:04 | NUR ---
ASSESSMENT COMPLETE. PT AGITATED AND IMPULSIVE DURING THE DAY. SUPPOSITORY GIVEN THIS AM, PT REPORTS BM THIS EVENING. PT HAD PICC LINE PLACED IN RIGHT UPPER ARM, ABX GIVEN SCHEDULED. US CAROTIDS COMPLETE, SEE REPORT. XARELTO STARTED BY VASCULAR. K+ REPLACED. 3L PER NC, SOA WITH EXERTION. PT IS UP ONE ASSIST WITH WALKER. FALL RISK, BED ALARM ON. SISTER AT BEDSIDE MOST OF THE DAY. SEE ASSESSMENT AND VITALS FOR OTHER DETAILS. CALL LIGHT WITHIN REACH, WILL CONTINUE PLAN OF CARE
[2019-04-06 20:30] VITALS: BP 168/90
--- NOTE | 2019-04-07 05:57 | NUR ---
PATIENT SLEPT PART OF THE NIGHT. PATIENT CONTINUES TO BE VERY IMPULSIVE AND RESTLESS. IV ANTIBIOTICS WERE GIVEN ORDERED. PATIENT WAS GIVEN PAIN AND ANXIETY MEDICINE NEEDED. PATIENT COULD POSSIBLY DISCHARGE TODAY IF PLACEMENT IS FOUND. WILL CONTINUE TO MONITOR.
[2019-04-07 07:46] VITALS: BP 154/78
[2019-04-07 13:15] LABS: BE -0.3 mmol/L (-2 to +3); PCO2 VENOUS 34.7 mmHg (41.0-51.0); PO2 VENOUS 31.1 mmHg (35.0-45.0)
[2019-04-07 13:16] LABS: HEMATOCRIT 29.1 % (42.0-52.0); HEMOGLOBIN 9.8 gm/dL (14.0-18.0); MCH 28.5 pg (26.0-34.0); MCHC 33.8 g/dL (28.0-37.0); MCV 84.4 fL (80.0-100.0); MPV 7.7 fl. (7.2-11.1); NUCLEATED RBCS 0 /100WBC; PLATELET COUNT* 215 thou/uL (150-400); RBC 3.44 mil/uL (4.50-6.00); RDW-CV 15.5 % (10.5-14.5); WBC 13.7 thou/uL (4.0-11.0)
[2019-04-07 13:39] LABS: ALBUMIN 1.8 g/dL (3.4-5.0); CALCIUM 7.9 mg/dL (8.5-10.1); CREATININE 1.2 mg/dL (0.6-1.3); POTASSIUM 3.7 mmol/L (3.5-5.1); TOTAL BILIRUBIN 2.5 mg/dL (<0.1-1.0); TOTAL PROTEIN 6.1 g/dL (6.4-8.2)
[2019-04-07 13:55] LABS: ABSOLUTE LYMPHOCYTES 0.5 thou/uL (0.8-5.3); ABSOLUTE NEUTROPHILS 13.2 thou/uL (1.6-8.1); PLATELET ESTIMATE ADEQUATE
--- NOTE | 2019-04-07 14:00 | NUR ---
SPOKE TO PT'S SISTER WHO STATES SHE WANTS PT TO GO TO THE [facility] DC. NO PLAN FOR DC TODAY PT CONDITION CHANGED. CM WILL CONTINUE TO FOLLOW
[2019-04-07 14:23] LABS: ESR (SEDRATE) 52 mm/hr (0-20)
[2019-04-07 15:16] VITALS: BP 169/85
--- NOTE | 2019-04-07 15:43 | NUR ---
ASSESSMENT COMPLETE. PT SEDATED AND SLEPT MOST OF THE DAY. VALIUM DECREASED DUE TO SLEEPING THROUGHOUT THE DAY. PT HAS INCREASED SHORTNESS OF AIR, CXR COMPLETED-SEE REPORT. PT IS ON 3L PER NC. CARDIOLOGY AND PULMONARY CONSULT. K+ REPLACED, NOW 3.7. PT HAS PICC IN RIGHT UPPER ARM, DRAWS AND FLUSHES WITHOUT DIFFICULTY. PHYSICAL THERAPY WALKED PATIENT THIS AFTERNOON. PT IS UP ONE ASSIST WITH WALKER. FALL RISK, BED ALARM ON. PT HAS NO OTHER CONCERNS AT THIS TIME, SISTER AT BEDSIDE. SEE ASSESSMENT AND VITALS FOR OTHER DETAILS. CALL LIGHT WITHIN REACH, WILL CONTINUE PLAN OF CARE
--- NOTE | 2019-04-07 16:20 | NUR ---
CONFIRMED WITH [facility] [phone] THAT PATIENT WILL PROBABLY DISCHARGE TOMORROW AND WILL CALL IN THE MORNING TO ARRANGE TRANSPORTATION, ETC. WITH [facility].
--- NOTE | 2019-04-07 18:32 | NUR ---
PATIENT TRANSFERRED TO ICU BED [address] SPAIN TRANSFERRED PT DUE TO STATUS CHANGE. PT LETHARGIC, SLOW TO WAKE. DR SPAIN WOULD LIKE [facility] TO MONITOR C02 AND REPEAT VBG AT 1999. ALL BELONGINGS SENT. REPORT GIVEN TO SIN PINEDA. HOSPITALIST SATELLITE DISH INSTALLER NOTIFIED.
[2019-04-07 19:00] VITALS: BP 172/91
--- NOTE | 2019-04-07 19:18 | NUR ---
PT TRANSFERED TO ROOM 008 VIA BED FROM . [facility] AT THIS TIME. REPORT GIVEN TO MAC ARTIST ICU NURSE.
--- NOTE | 2019-04-07 19:56 | 2DMMODE ---
[place] [address] 2 D/M-MODE ECHOCARDIOGRAM Name: LETITIA STOKES Room: [facility] IN [facility]#: [id number] Admission: 03/27/19 Attend Phys: Zeke Rahman Discharge: Date of : 59 Date of Service: 04/07/191953 Report #: [id number] THIS REPORT FOR: cc: Millicent Cruz Ann FNPC Liston, Michael J. MD [facility] ~ APPROVED REPORT Study performed: 04/07/2019 15:22:05 EXAM: Limited 2D, Doppler, and color-flow Echocardiogram Patient Location: In-Patient Room #: 310 Status: routine BSA: 1.89 HR: 47 bpm BP: 154/78 mmHg Other Information Study Quality: Good Indications Pulmonary Hypertension Sepsis Tricuspid Valve RAP Estimate: 5.00 mmHg TR Peak Gr.: 45.27 mmHg RVSP: 50.00 mmHg PA Pressure: 50.00 mmHg Left Ventricle The left ventricle is normal size. Mild concentric left ventricular hypertrophy. The left ventricular systolic function is normal. LVEF is 50-55%. Right Ventricle The right ventricle is normal size. The right ventricular systolic function is normal. Atria Left atrium is mildly dilated. Aortic Valve Aortic valve is bicuspid. Moderate aortic valve sclerosis. [facility] [address] [place] [address] 2 D/M-MODE ECHOCARDIOGRAM Name: LETITIA STOKES Room: 008-P ADM IN M.R.#: [id number] Admission: 03/27/19 Attend Phys: Zeke Rahman Discharge: Date of : 59 Date of Service: 04/07/191953 Report #: [id number] Mitral Valve There is mitral annular calcification. Tricuspid Valve The tricuspid valve is normal in structure. Mild tricuspid regurgitation. Moderate pulmonary hypertension. The RVSP is ___50____ mmHg. Pulmonic Valve The pulmonary valve is normal in structure. Great Vessels The aortic root is normal in size. IVC is normal in size and collapses >50% with inspiration. Pericardium There is no pericardial effusion. <Conclusion> The left ventricle is normal size. Mild concentric left ventricular hypertrophy. The left ventricular systolic function is normal. LVEF is 50-55%. The right ventricle is normal size. The right ventricular systolic function is normal. Left atrium is mildly dilated. Aortic valve is bicuspid. Moderate aortic valve sclerosis. There is mitral annular calcification. Mild tricuspid regurgitation. Moderate pulmonary hypertension. The RVSP is ___50____ mmHg. IVC is normal in size and collapses >50% with inspiration. Of note the patient was in bigeminy during this study. <ELECTRONICALLY SIGNED> By: Zbigniew Floyd MD, FACC 04/07/191953 53 53 Zbigniew Floyd MD, FACC /INF
[2019-04-07 20:00] VITALS: BP 178/86
[2019-04-07 20:12] LABS: BE -0.3 mmol/L (-2 to +3)
[2019-04-07 21:00] VITALS: BP 173/89
[2019-04-07 22:00] VITALS: BP 158/76
[2019-04-08] VITALS (15 sets, daily range): BP systolic 133–176; BP diastolic 65–91
--- NOTE | 2019-04-08 04:26 | NUR ---
ASSUMED CARE AT 1910H, ON NC AT 3LPM AND TOLERATED. PT WAS AWAKE, GRUMPY AND IRRITABLE. HE WANTED TO GO BACK TO REGULAR ROOM. PT WAS ALSO ANXIOUS AT TIMES EXPLAIN HIS SITUATION AND WHAT HAPPEN TO HIM. PRN MED GIVEN FOR HIS PAIN. TOLERATED ORAL MEDS AND FOODS. CONTINUE MONITORING AND TOWARD GOALS.
[2019-04-08 05:58] LABS: CALCIUM 7.9 mg/dL (8.5-10.1); CREATININE 1.2 mg/dL (0.6-1.3); POTASSIUM 3.5 mmol/L (3.5-5.1)
--- NOTE | 2019-04-08 09:13 | CON ---
[address] [address] CONSULTATION Name: LETITIA STOKES Room: [address] ADM IN M.R.#: [id number] Admission: 03/27/19 Attend Phys: Zeke David, Discharge: Date of : 59 Report #: [id number] THIS REPORT FOR: //name// cc: Millicent Cruz Ann FNPC ~ THIS REPORT FOR: //name// CC: Millicent David CARDIOLOGY CONSULTATION INDICATION: Possible heart failure. HISTORY OF PRESENT ILLNESS: The patient is a 63-year-old gentleman with peripheral vascular disease, who was admitted to the hospital here many days ago with sepsis. Prior to hospitalization here, he had a stent placed in the aorta at outside hospital for peripheral vascular disease. He did have positive blood cultures. There was concern that he may have infection of this material. Echocardiogram here showed hypokinesis of the inferior wall with an ejection fraction of 40%-45%. There was grade 1 diastolic dysfunction. Left atrium was dilated. The patient had mild aortic stenosis. PA pressures at that time were estimated to be 40 mmHg. A followup transesophageal echocardiogram showed no evidence of valvular vegetations and no evidence of shunt. The patient has had some increasing pulmonary vascular congestion with cardiomegaly on chest x-ray. His NT-pro-BNP is elevated at 15,000 presently. He is having some symptoms of dyspnea to suggest possible exacerbation of heart failure. He denies any chest pain. He is without other cardiac complaint at this time. PAST MEDICAL HISTORY: 1. Peripheral vascular disease with previous lower extremity revascularization. 2. Carotid vascular disease with previous carotid endarterectomy. 3. Mild aortic stenosis. 4. History of acute renal failure with return to baseline of renal function. SOCIAL HISTORY: The patient was a pack a day cigarette smoker prior to hospitalization. He drinks alcohol occasionally. FAMILY HISTORY: Noncontributory. CURRENT MEDICATIONS: Diazepam 2.5 mg daily, Xarelto 15 mg b.i.d., Megace 400 mg daily, bisacodyl 10 mg daily, rectally, hydralazine 10 mg p.r.n., lisinopril 20 mg p.o. daily, Risperdal 1 mg p.o. b.i.d., hydrocodone/acetaminophen p.r.n., lorazepam p.r.n., rifampin 300 mg as directed, nafcillin 2 grams as directed, MiraLax 17 grams daily, Protonix 40 mg daily, simethicone [address] [place] [address] [place] [address] CONSULTATION Name: LETITIA STOKES Room: [address] IN M.R.#: [id number] Admission: 03/27/19 Attend Phys: Zeke David, Discharge: Date of : 59 Report #: [id number] promethazine p.r.n. PHYSICAL EXAMINATION: VITAL SIGNS: Blood pressure 169/85, pulse 98. GENERAL: This is an elderly gentleman who is in no distress. Mood and affect blunted. HEENT: Head is normocephalic, atraumatic. Extraocular muscles intact. NECK: Shows no jugular venous distention. CHEST: Reveals bibasilar rales. CARDIOVASCULAR: Reveals a regular rhythm. I do not appreciate gallop. There is a soft grade 2/6 systolic ejection murmur. ABDOMEN: Soft and nontender. EXTREMITIES: Show trace edema. SKIN: Dry. IMPRESSION AND RECOMMENDATIONS: 1. Vnggn-vw-zuyodmp combined heart failure. Agree with repeating a limited 2D echo to rule out effusion and further evaluate LV and RV systolic function. I have given him a single dose of IV Lasix at this time for diuresis. 2. Peripheral vascular disease. The patient is being followed by Vascular Surgery. 3. Hypertension. We will adjust antihypertensive medications for improved blood pressure control. 4. Sepsis, on multiple IV antibiotics presently. 5. Chronic anticoagulation, presumably for peripheral vascular disease and left iliac thrombosis. <ELECTRONICALLY SIGNED> By: Zbigniew Floyd MD, FACC 04/08/19 0913 1741 Micjovon Floyd MD, FACC /nt
--- NOTE | 2019-04-08 11:31 | NUR ---
ICU ROUNDS: VISITED WITH PT AND SISTER IN ROOM. PLAN TO GO TO THE [facility] WHEN STABLE. DISCUSSED PLAN OF CARE WITH SISTER. PT TO BE MOVED TO TELE UNIT TODAY
--- NOTE | 2019-04-08 12:10 | NUR ---
CALLED [facility] AND LEFT VOICE MAIL MESSAGE FOR [facility]TAKE THAT PATIENT WILL DISCHARGE TOMORROW OR SATURDAY, 04/09-. SPECIAL PROCEDURES NURSE SPOKE TO THE FAMILY. [facility] [phone].
--- NOTE | 2019-04-08 16:09 | NUR ---
PT ASSESSMENT CHARTED. PT CRYING OUT IN PAIN WHEN FIRST CAME ON SHIFT, RATING HIS PAIN 10/10. NURSE ASSISTED PATIENT TO REARRANGE IN BED AND SIT UP FOR BREAKFAST. PER PATIENT'S REQUEST, NURSING STAFF BROUGHT PATIENT 2 CUPS OF COFFEE AND TURNED ON HIS TV WHICH SEEMED TO DECREASE ANXIETY AND HELPED WITH THE PAIN. PT COMPLAINTS OF CONSTIPATION AND FEELING NAUSEOUS. THIS INFORMATION WAS GIVEN TO THE HIMS MD AND NEW BOWEL MEDS ORDERED. LASIX GIVEN X1 DOSE TODAY WITH URINATION OF DEXTER COLORED URINE IN THE URINAL. UP TO BEDSIDE COMMODE WITH ONE ASSIST TO ATTEMPT BM BUT UNSUCCESSFUL. PT'S DAUGHTER AT THE BEDSIDE THIS MORNING WITH SERVICE DOG. PROTECTIVE SIGNAL REPAIRER AND EDITORIAL WRITER ALONG WITH NURSE AT THE BEDSIDE WHEN PT'S DAUGHTER ASKED ABOUT SERVICE DOG AND OUR UNIT POLICY. PT CLARIFIED THAT HER DOG WAS A SERVICE DOG AND NOT A LOGISTICS ASSISTANT DOG. PAPERWORK PLACED ON THE FRONT OF THE CHART. PT'S DAUGHTER THEN LET BACK TO IMMEDIATELY TO BE WITH THE PT AND ADMINISTRATION FOUND A TELEMETRY BED TO TRANSFER PATIENT TO PER THE FAMILY REQUEST. REPORT GIVEN TO TELE NURSE. VSS THROUGHOUT SHIFT. PT TRANSFERRED TO Replaced by [facility] AT 1445.
[2019-04-08 16:40] LABS: HEMATOCRIT 32.2 % (42.0-52.0); HEMOGLOBIN 10.6 gm/dL (14.0-18.0); MCH 27.9 pg (26.0-34.0); MCV 84.4 fL (80.0-100.0); MPV 7.5 fl. (7.2-11.1); RBC 3.82 mil/uL (4.50-6.00); RDW-CV 15.4 % (10.5-14.5); WBC 15.5 thou/uL (4.0-11.0)
[2019-04-08 17:11] LABS: ALBUMIN 1.8 g/dL (3.4-5.0); DIRECT BILIRUBIN 1.2 mg/dL (<0.1-0.3); TOTAL BILIRUBIN 2.1 mg/dL (<0.1-1.0); TOTAL PROTEIN 6.8 g/dL (6.4-8.2)
--- NOTE | 2019-04-08 20:13 | NUR ---
PT TRANSFERRED FROM [facility], AGREE WITH CRITICAL CARE REASSESSMENT MADE BY MIRIAM ESPINO, PATIENT ORIENTED TO ROOM. DIFFICULTY HAVING A BOWEL MOVEMENT. RIGHT UPPER ARM PICC- SINGLE LUMEN, NSR ON TELE, A&OX4, NC@3L, HOURLY ROUNDING PERFORMED, POSSESSIONS AND CALL LIGHT WITHIN REACH
[2019-04-09] VITALS: BP 169/76
[2019-04-09 04:00] VITALS: BP 175/84
[2019-04-09 05:47] LABS: HEMATOCRIT 30.4 % (42.0-52.0); HEMOGLOBIN 10.3 gm/dL (14.0-18.0); MCH 28.4 pg (26.0-34.0); MCHC 33.8 g/dL (28.0-37.0); MPV 7.2 fl. (7.2-11.1); RBC 3.62 mil/uL (4.50-6.00); WBC 13.7 thou/uL (4.0-11.0)
[2019-04-09 06:07] LABS: ALBUMIN 1.5 g/dL (3.4-5.0); CALCIUM 7.8 mg/dL (8.5-10.1); CREATININE 1.4 mg/dL (0.6-1.3); POTASSIUM 3.4 mmol/L (3.5-5.1); TOTAL BILIRUBIN 2.4 mg/dL (<0.1-1.0); TOTAL PROTEIN 6.1 g/dL (6.4-8.2)
--- NOTE | 2019-04-09 06:59 | PATH ---
[address] [address] PATHOLOGY RPT PROCEDURE Name: LETITIA STOKES Room: [address] IN ..#: [id number] Admission: 03/27/19 Date of : 59 Discharge: Report #: [id number] Path Case #: [id number] Note [facility] Accession Number: [id number] TESTS RESULT FLAG UNITS REF RANGE LAB Clinician Provided Cytology Information No. of containers..01 Other (Miscellaneous) Source: RIGHT PLEURAL FLUID DIAGNOSIS: 02 RIGHT PLEURAL FLUID INCONCLUSIVE. RARE ATYPICAL CELLS WITH ABUNDANT REACTIVE MESOTHELIAL CELLS AND CHRONIC INFLAMMATION. THIS INTERPRETATION INCLUDES EVALUATION OF A CELL BLOCK. Signed out by: 02 Harinder Garcia MD, Pathologist NPI- [id number] Performed by: 01 Natacha Veronica, Plastic Extrusion Operator ([facility]) Gross description: 01 35ML, CLOUDY YELLOW, 1 TP 1 CB /LCS 04/07/2019 1500 Local FLAG LEGEND: L-Low Normal,H-High Normal,LL-Alert Low,HH-Alert High <-Panic Low,>-Panic High,A-Abnormal,AA-Critical Abnormal Performed at: [address] [place] [address] Doug Langston MD, [address] [place] [address] [facility], [place] [address] Harinder Garcia MD, Specimen Comment: Report sent to Performed at: [address], [place], [place] [id number] MD Doug Langston MD Phone: [phone]
[2019-04-09 08:00] VITALS: BP 166/82
--- NOTE | 2019-04-09 12:02 | NUR ---
Pt discharing to [facility] today, faxed dc orders and updated clinical info, along with [id number] form. Facility to picker / packer at 330pm. Updated sister in room. Chart copied. Nurse report number is [phone].
[2019-04-09 12:21] VITALS: BP 142/81
[2019-04-09] MEDS ORDERED: DIAZEPAM 5 MG5 M1 PO (14:56)
[2019-04-09] MEDS ORDERED: FERROUS SULFAT325 MG PO (14:59)
[2019-04-09] MEDS ORDERED: NORCO 5-325 TA1 EAC1 PO (15:00)
[2019-04-09] MEDS ORDERED: LIDODERM1 EACH TOP (15:01)
[2019-04-09] MEDS ORDERED: MEGESTROL400 MG/11 PO (15:03)
[2019-04-09] MEDS ORDERED: PRINIVIL20 M1 PO (15:04)
[2019-04-09] MEDS ORDERED: PROTONIX40 M1 PO (15:06)
[2019-04-09] MEDS ORDERED: NAFCILLIN 1GM AD1 G1 IV (15:08)
[2019-04-09] MEDS ORDERED: TYLENOL325 M1 PO (15:10)
[2019-04-09] MEDS ORDERED: DIALYVITE VI1250 MCG PO (15:15)
[2019-04-09] MEDS ORDERED: XARELTO15 MG PO (15:16)
[2019-04-09 15:25] VITALS: BP 142/81
--- NOTE | 2019-04-09 20:13 | NUR ---
PT VSDarrell, A&OX4, NSR ON TELE, PATIENT REPORTS 10/10 GAS PAIN AND CRAMPING. BOWELS MOVING WITH LOOSE STOOLS. SINGLE LUMEN PICC IN UPPER RIGHT ARM. STAND BY ASSIST. PATIENT SISTER AT BEDSIDE. REC DISCHARGE ORDERS. REVIEWED WITH PATIENT AND SISTER, REPORT CALLED TO MIRIAM CAAL AT THE [facility]. PICC LEFT IN PLACE FOR IV ANTIBIOTICS, TELE MONITOR REMOVED. HOURLY ROUNDING PERFORMED, POSSESSIONS AND CALL LIGHT WITHIN REACH. PATIENT PICKED UP BY WHEELCHAIR TRANSPORT.
--- NOTE | 2019-04-10 09:03 | NUR ---
PT. DISCHARGED TO [facility] PRIOR TO O.T. EVAL. HE TRANSFERRED TO ICU ON 04/07 AND RESUME ORDERS WERE NOT RECIEVED.
== END 2019-04-09 15:55 | DRG 871 ==
LOC: M.ERS 11:30 → M.ICU 13:10 → M.TBA-ER 13:10 → M.2W 13:10 → M.3W 13:10 → M.2W 18:23 → M.3W 04-03 16:46 → M.ICU 04-07 19:00 → M.2W 04-08 15:07
PROVIDERS: Emergency Medicine Emergency Medical Services; Internal Medicine; Internal Medicine Cardiovascular Disease; Internal Medicine Nephrology; Internal Medicine Pulmonary Disease; Surgery; ADMIT Family Medicine
PROC: 0DBK8ZX Excision of Ascending Colon, Via Natural or Artificial Opening Endoscopic, Diagnostic (ICD-10-PCS; 2019-03-31)
PROC: 0DJ08ZZ Inspection of Upper Intestinal Tract, Via Natural or Artificial Opening Endoscopic (ICD-10-PCS; 2019-03-31)
PROC: 0DBP8ZX Excision of Rectum, Via Natural or Artificial Opening Endoscopic, Diagnostic (ICD-10-PCS; 2019-03-31)
PROC: 0DBN8ZX Excision of Sigmoid Colon, Via Natural or Artificial Opening Endoscopic, Diagnostic (ICD-10-PCS; 2019-03-31)
PROC: 0DBL8ZX Excision of Transverse Colon, Via Natural or Artificial Opening Endoscopic, Diagnostic (ICD-10-PCS; 2019-03-31)
PROC: 0W993ZZ Drainage of Right Pleural Cavity, Percutaneous Approach (ICD-10-PCS; principal; 2019-04-05)
PROC: 02HV33Z Insertion of Infusion Device into Superior Vena Cava, Percutaneous Approach (ICD-10-PCS; principal; 2019-04-05)
DX: A41.01 Sepsis due to Methicillin susceptible Staphylococcus aureus (principal); N17.0 Acute kidney failure with tubular necrosis; G92 Toxic encephalopathy; I50.43 Acute on chronic combined systolic (congestive) and diastolic (congestive) heart failure; E43 Unspecified severe protein-calorie malnutrition; K56.7 Ileus, unspecified; K51.00 Ulcerative (chronic) pancolitis without complications; M62.82 Rhabdomyolysis; I13.0 Hypertensive heart and chronic kidney disease with heart failure and stage 1 through stage 4 chronic kidney disease, or unspecified chronic kidney disease; J91.8 Pleural effusion in other conditions classified elsewhere; I77.4 Celiac artery compression syndrome; K92.1 Melena; I82.409 Acute embolism and thrombosis of unspecified deep veins of unspecified lower extremity; D50.9 Iron deficiency anemia, unspecified; K52.9 Noninfective gastroenteritis and colitis, unspecified; K59.00 Constipation, unspecified; I35.0 Nonrheumatic aortic (valve) stenosis; I73.9 Peripheral vascular disease, unspecified; D69.6 Thrombocytopenia, unspecified; F41.9 Anxiety disorder, unspecified; I70.8 Atherosclerosis of other arteries; Z60.2 Problems related to living alone; G89.4 Chronic pain syndrome; I25.10 Atherosclerotic heart disease of native coronary artery without angina pectoris; F17.210 Nicotine dependence, cigarettes, uncomplicated; E78.5 Hyperlipidemia, unspecified; M19.90 Unspecified osteoarthritis, unspecified site; K74.60 Unspecified cirrhosis of liver; M54.5 Low back pain; E83.42 Hypomagnesemia; K81.9 Cholecystitis, unspecified; E03.9 Hypothyroidism, unspecified; R73.03 Prediabetes; J44.9 Chronic obstructive pulmonary disease, unspecified; N18.3 Chronic kidney disease, stage 3 (moderate); I27.20 Pulmonary hypertension, unspecified; R09.02 Hypoxemia; F32.9 Major depressive disorder, single episode, unspecified; F03.90 Unspecified dementia, unspecified severity, without behavioral disturbance, psychotic disturbance, mood disturbance, and anxiety; D12.2 Benign neoplasm of ascending colon; D12.3 Benign neoplasm of transverse colon; K62.1 Rectal polyp; D12.5 Benign neoplasm of sigmoid colon; K44.9 Diaphragmatic hernia without obstruction or gangrene; Z82.49 Family history of ischemic heart disease and other diseases of the circulatory system; Z72.89 Other problems related to lifestyle; Z95.820 Peripheral vascular angioplasty status with implants and grafts; Z68.28 Body mass index [BMI] 28.0-28.9, adult; Z95.1 Presence of aortocoronary bypass graft; Z79.82 Long term (current) use of aspirin; Z79.01 Long term (current) use of anticoagulants; Z28.21 Immunization not carried out because of patient refusal